=== PATIENT | female | born 1970 | race Caucasian/White ===

== ENCOUNTER → 2023-08-11 15:50 | Outpatient (REF) | payer BC, SELFPAY | LOC: HWWDC 15:50 | PROVIDERS: ATTENDING PHYSICIAN Obstetrics & Gynecology Gynecology; FAMILY PHYSICIAN Physician Assistant Medical | DX: Z01.419 Encounter for gynecological examination (general) (routine) without abnormal findings (principal); Z12.31 Encounter for screening mammogram for malignant neoplasm of breast | CPT/HCPCS: 77063; 77067 ==

== ENCOUNTER → 2023-09-09 13:14 | Outpatient (REF) | payer BC, SELFPAY | LOC: RAD 13:14 | PROVIDERS: ATTENDING PHYSICIAN Physician Assistant Medical | DX: R06.89 Other abnormalities of breathing (principal) | CPT/HCPCS: 71046 ==

== ENCOUNTER → 2024-05-31 14:24 | Outpatient (REF) | payer BC, SELFPAY | LOC: HWRAD 14:24 | PROVIDERS: ATTENDING PHYSICIAN Physician Assistant Medical | DX: R10.9 Unspecified abdominal pain (principal); Z87.42 Personal history of other diseases of the female genital tract | CPT/HCPCS: 74178; Q9967 ==

== ENCOUNTER → 2024-08-10 11:15 | Outpatient (REF) | payer BC, SELFPAY | LOC: RAD 11:15 | PROVIDERS: ATTENDING PHYSICIAN Physician Assistant Medical | DX: R07.81 Pleurodynia (principal); R05.1 Acute cough | CPT/HCPCS: 71101 ==

== ENCOUNTER 2024-11-07 06:16 | Day surgery (SDC) | payer BC, SELFPAY | END 2024-11-07 12:05 | disposition home or self-care (01) | LOC: GI 06:16 | PROVIDERS: ATTENDING PHYSICIAN Specialist | DX: Z12.11 Encounter for screening for malignant neoplasm of colon (principal); K31.7 Polyp of stomach and duodenum; K31.89 Other diseases of stomach and duodenum; R10.84 Generalized abdominal pain; Z86.0101 Personal history of adenomatous and serrated colon polyps | CPT/HCPCS: 43239; G0105; 88305; 88342 ==